=== PATIENT | male | born 1975 | race Caucasian/White ===

== ENCOUNTER 2020-10-14 10:40 | Inpatient (IN) | payer MEDICARE, MEDICAID, SELFPAY ==
[2020-10-14] VITALS (23 sets, daily range): BP systolic 108–135; BP diastolic 62–94; PULSE 66–98; RESP 12–20; TEMP 35.7–36.7; O2SAT 93–100; BMI 30.6; BMI 32.5
--- NOTE | 2020-10-14 11:00 | ADMGEN ---
This patient, Erik Fwoler IV, was admitted to IMU Room 201-01 at 1045 on 10/14/2020. Patient/family oriented to hospital policies and general routines including ID bracelet, bed and alarms, visiting hours, pain management, procedures, bathroom and other care routines, personal items, smoking policy, room service/diet, and visiting hours. Information on how to activate the Rapid Response Team has been discussed. Patient/Family are encouraged to report perceived risks to care and to ask questions if they do not understand what they are told or what they should do.
--- NOTE | 2020-10-14 11:56 | ECG_ITS ---
Measurements Intervals [place] Rate: 80 P: 54 [place]: 153 QRS: 61 QRSD: 106 T: 83 QT: 371 QTc: 430 Interpretive Statements SINUS RHYTHM WITH MARKED SINUS ARRHYTHMIA ANTEROSEPTAL INFARCT, AGE INDETERMINATE BORDERLINE T WAVE ABNORMALITY- HIGH LATERAL LEADS ABNORMAL ECG Electronically Signed On 10-14-2020 13:35:02 CDT by Misael Blake D.O.
[2020-10-14 12:19] LABS: Hematocrit 47.7 % (42.0-52.0); Hemoglobin 16.1 g/dL (14.0-18.0); Mean Corpuscular HGB Conc 33.8 g/dl (32-36); Mean Corpuscular Hemoglobin 31.4 pg (26-34); Mean Platelet Volume 10.5 fl (7.4-10.4); Platelet Count Result 233 k/mm3 (150-375); Red Blood Count 5.13 M/mm3 (4.6-6.20); White Blood Count 7.1 K/mm3 (4.5-10.0)
--- NOTE | 2020-10-14 12:24 | PM.IMHP ---
H&P: HPI History of Present Illness Date/Time: 10/14/20 12:24 Chief Complaint: Chest pain Narrative: This is a pleasant but unfortunate 45-year-old man who is known to have coronary disease and a significant ischemic cardiomyopathy. He was admitted here at [facility] today in transfer from [place] where he was evaluated in the emergency room in the middle of the night with symptoms of intermittent chest pain. He has a history of previous anterior wall AZ and has had a couple of previous interventions done in his LAD I believe up in [facility]. These events occurred in the remote past. He following that had a long history of noncompliance with medication and follow-up. I saw him in consultation at [facility] back in May of 2018 when he was having some symptoms that were clearly not indicative of an AZ. He then became my patient for follow-up shortly after that. He has a [place] ICD device that was placed up in [place] as well. His residual ejection fraction after the above-described infarction is in the neighborhood of 30%. For this he is an appropriate medical regimen. I saw him in the office in July of this year for routine scheduled follow-up at which time he was not describing any cardiovascular symptoms or symptoms of ischemia. He was however describing an extreme amount of personal/psychosocial stress related to a critical illness in his 15-year-old daughter. Patient in the last month or so began to have some left shoulder pain with no other associated features the shoulder pain was related to rotating and abducting the shoulder. He was not concerned that this represented a cardiac issue. In the last couple of days however he has been having intermittent episodes of some precordial chest discomfort associated with some paresthesias in the fingers. These symptoms do raise concern and last night he went to the emergency room at [place] for evaluation. His electrocardiogram shows a sinus mechanism with previous anterior infarction which appears to be as 1 would expect. I was told his troponin level was somewhat elevated the troponin assay over there is high sensitivity assay with a modest rise and so he was transferred here from their hospital for further evaluation and management. When I came in the room to see him he was resting comfortably and actually sleeping soundly upon awakening he offers no other complaints. Review of Systems Constitutional: Constitutional: Reports no additional constitutional complaints Eyes: Eyes: Reports no additional eye complaints ENT: Reports system reviewed and no additional complaints, except as documented Cardiovascular: Cardiovascular: Reports as per HPI and Reports chest pain Respiratory: Respiratory: Reports no additional respiratory complaints Gastrointestinal: Gastrointestinal: Reports no additional gastrointestinal complaints Musculoskeletal: Musculoskeletal: Reports as per HPI Comments: Left shoulder pain as detailed above Integumentary/Breasts: Skin/Breast: Reports system reviewed and no additional complaints, except as docu Neurologic: Reports system reviewed and no additional complaints, except as documented Psychiatric: Psychiatric: Reports anxiety PMFSH Social History Social History Smoking packs per day: 1 Smoking cigarettes per day: 20.0 Years smoked: 30 Smoking pack-years: 30.00 Smoking status: Current every day smoker Tobacco type: cigarettes Alcohol intake: current Drinks per week: 1 Substance use: current Substance use type: marijuana Gender identity (if verbalized by the patient): Male Spiritual care concerns: No Meds Home Medications and Allergies Home Medications Medication Instructions Recorded Confirmed Type aspirin 81 mg PO DAILY 10/14/20 10/14/20 History carvedilol 12.5 mg PO BIDWM 10/14/20 10/14/20 History citalopram 40 mg PO DAILY 10/14/20 10/14/20 History ezetimibe 10 mg PO DAILY 10/14/20 08
[2020-10-14 12:32] LABS: Anion Gap 6 mmol/L (8-16); Blood Urea Nitrogen 10 mg/dL (9-20); Calcium 9.1 mg/dL (8.4-10.2); Carbon Dioxide 24 mmol/L (22-30); Chloride 107 mmol/L (98-107); Estimated CRCL calculation 110 ml/min; Estimated Glomerular Filt Rate > 60; Glucose 109 mg/dL (65-110); Potassium 3.9 mmol/L (3.4-5.0); Sodium 137 mmol/L (137-145)
[2020-10-14 12:40] LABS: INR 0.9; Prothrombin Time 12.2 Seconds (11.1-14.7)
[2020-10-14 13:04] LABS: Troponin I 0.319 ng/mL (0.000-0.034)
--- NOTE | 2020-10-14 13:19 | WPDMODSED ---
Moderate Sedation Note-Pt Data Patient Data Diagnosis: Chest pain, troponin elevation history of coronary disease previous [place] and ischemic cardiomyopathy Present Complaint: intermittent chest pain Procedure to be performed/Plan: left heart catheterization Allergies Allergy/AdvReac Type Severity Reaction Status Date / Time Penicillins Allergy Unknown UNKNOWN Verified 05/21/18 01:14 rosuvastatin Allergy Unknown Unknown Verified 05/21/18 01:14 Home Medications Medication Instructions Recorded Confirmed Type aspirin 81 mg PO DAILY 10/14/20 10/14/20 History carvedilol 12.5 mg PO BIDWM 10/14/20 10/14/20 History citalopram 40 mg PO DAILY 10/14/20 10/14/20 History ezetimibe 10 mg PO DAILY 10/14/20 10/14/20 History famotidine 20 mg PO DAILY 10/14/20 10/14/20 History isosorbide mononitrate 30 mg PO Q12H 10/14/20 10/14/20 History lisinopril 20 mg PO DAILY 10/14/20 10/14/20 History simvastatin 40 mg PO HS 10/14/20 10/14/20 History ticagrelor [Brilinta] 60 mg PO Q12H 10/14/20 10/14/20 History Current Medications: Active Medications Aspirin (Aspirin 81 Mg Enteric Tablet) 81 mg PO DAILY [facility] Carvedilol (Carvedilol 12.5 Mg Tablet) 12.5 mg PO BIDWM [facility] Citalopram Hydrobromide (Citalopram Hydrobromide 10 Mg Tablet) 40 mg PO DAILY [facility] Ezetimibe (Ezetimibe 10 Mg Tablet) 10 mg PO DAILY [facility] Isosorbide Mononitrate (Isosorbide Mononitrate 30 Mg Tab.Er.24h) 30 mg PO Q12HR JOHNNA Lisinopril (Lisinopril 20 Mg Tablet) 20 mg PO DAILY [facility] Simvastatin (Simvastatin 20 Mg Tablet) 40 mg PO HS [facility] Ticagrelor (Ticagrelor 60 Mg Tablet) 60 mg PO Q12HR [facility] Sedation/Anesthesia: No previous sedation/anesthesia problems (including family history). [facility] Social History Social History Smoking packs per day: 1 Smoking cigarettes per day: 20.0 Years smoked: 30 Smoking pack-years: 30.00 Smoking status: Current every day smoker Tobacco type: cigarettes Alcohol intake: current Drinks per week: 1 Substance use: current Substance use type: marijuana Gender identity (if verbalized by the patient): Male Spiritual care concerns: No Mod Sed Physical Exam Physical Exam Pre Procedural Exam: Normal: Neck, Throat, Airway, Lungs, Heart Rate, Heart Rhythm, Neuro Exam and Extremities and Variation: Appearance ( overweight white male no distress sleeping) and Heart Size ( PMI laterally displaced) Hours since solid foods: 12 Hours since liquid intake: 12 Mallampati Classification: class II Internal Medicine - PN: Obj Da Vital Signs Vital Signs: Vital Signs - 24 hr 10/14/20 11:26 10/14/20 12:00 Temperature 36.7 C Pulse Rate 98 77 Respiratory Rate 14 Blood Pressure 122/86 Pulse Oximetry 98 Meds/Results Medications: Active Medications Generic Name Dose Route Start Last Admin Trade Name Freq PRN Reason Stop Dose Admin Aspirin 81 mg 10/15/20 09:00 Aspirin 81 Mg Enteric Tablet PO DAILY JOHNNA Carvedilol 12.5 mg 10/14/20 17:00 Carvedilol 12.5 Mg Tablet PO BIDWM [facility] Citalopram Hydrobromide 40 mg 10/15/20 09:00 Citalopram Hydrobromide 10 Mg Tablet PO DAILY JOHNNA Ezetimibe 10 mg 10/15/20 09:00 Ezetimibe 10 Mg Tablet PO DAILY JOHNNA Isosorbide Mononitrate 30 mg 10/14/20 21:00 Isosorbide Mononitrate 30 Mg Tab.Er.24h PO Q12HR JOHNNA Lisinopril 20 mg 10/15/20 09:00 Lisinopril 20 Mg Tablet PO DAILY JOHNNA Simvastatin 40 mg 10/14/20 21:00 Simvastatin 20 Mg Tablet PO HS JOHNNA Ticagrelor 60 mg 10/14/20 21:00 Ticagrelor 60 Mg Tablet PO Q12HR [facility] Labs CBC & Chem 7: 10/14/20 12:11 10/14/20 12:11 Labs: Laboratory Results - last 24 hr 10/14/20 10/14/20 10/14/20 12:11 12:11 12:11 WBC 7.1 RBC 5.13 Hgb 16.1 Hct 47.7 MCV 93.0 MCH 31.4 MCHC 33.8 RDW 13.0 Plt Count 233 MPV 10.5 H PT 12.2 INR 0.9 Sodium 137 Potassium 3.9 Chloride 107 Carbon Dioxide 24 Anion Gap
--- NOTE | 2020-10-14 14:22 | WPDCARDPROC ---
Cardiac Cath Procedure Note Date of procedure:: 10/14/20 Performing physician:: Berto Roland MD Indication:: Chest pain, history of coronary disease and ischemic cardiomyopathy troponin elevation Brief clinical history:: this is a 45-year-old man with a known history of coronary disease, previous AL and PCI of the LAD at another institution. He has a history of ischemic LV dysfunction and a implantable defibrillator device. He enters this hospital in transfer from an outlying hospital with an episode of chest pain at with a very modest to a troponin rise. In this setting a follow-up angiogram has been recommended. Procedure Procedure performed:: Left ventriculography coronary angiography Sedation/Medication given:: fentanyl 50 mg Versed 2 mg case start 1:52 p.m. end time 2:16 p.m. sedation provided by Clyde Freed RN, trained observer Access site:: right femoral artery Estimated blood loss:: 15-20 cc Procedure note:: this patient was brought to the cardiac catheterization lab in the postabsorptive state where the right femoral triangle was prepared and draped in the normal fashion. Anesthesia was provided with 1% lidocaine infiltrated locally. Using the modified Seldinger technique the 5 Swedish sheath was placed into the femoral artery left heart catheterization was then carried out I used a 5 Swedish angled pigtail catheter to document left-sided hemodynamics and to injected LV g in the BENJAMIN projection. The pigtail catheter was then withdrawn I used a 5 Swedish JR4 catheter to engage and inject the right coronary artery this catheter would not stay in the vessel so I changed for a 5 Swedish WRP catheter. 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 After this I used a 5 [place] FL4 catheter to engage The left coronary artery and injected in multiple projections. Cineangiograms were then reviewed and the case was terminated. The patient tolerated procedure well there were no apparent complications he left the quality assurance lab technician with no sign of groin hematoma. Sheath will be removed with direct manual compression in the holding area. Findings:: Hemodynamics: Central aortic pressure is 116 over 72 left ventricle 118/8 end-diastolic pressure 18. There is no significant gradient on pullback across the aortic valve. Left ventricle: The left ventricle is significantly dilated. There is profound systolic hypokinesia with a global ejection fraction I would visually estimate to be 20%. The anterior wall is frankly akinetic. There is angiographic evidence of left ventricular apical thrombus. The left main coronary artery is nicely patent the left anterior descending is 100% occluded at its origin. There is proximal stent material visible in the LAD but there is no antegrade flow in the vessel. The circumflex is a moderate to large caliber vessel there is mild luminal irregularities throughout the circumflex or does not appear to be any significant flow-limiting disease. There is collateral filling from left to right from the circumflex to the RPDA and RPL branches. The right coronary artery is dominant to the posterior circulation it is medium in caliber and severely diffusely disease. There is stent material in the proximal segment of the artery as well as in the 3rd portion. Proximal to the of the 1st stent there is 70-80% stenosis in the trunk of the right coronary artery. There is then severe diffuse disease after which the distal segment of the artery in the distal more stent is 100% occluded. 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 After injecting the RCA I redirected the WRP catheter to inject this vessel in both the SUDANESE and BENJAMIN projections. This is an anomalous OM branch. There is high-grade 95% stenosis just after the origination of this branch. The remain
[2020-10-14] MEDS: SODIUM CHLORIDE 0.9% IV 1,000 ML 125 ML IV CONT (17:38)
[2020-10-14] MEDS: carvediloL 12.5 MG TABLET PO (17:41)
[2020-10-14] MEDS: TICAGRELOR 60 MG TABLET PO (20:41)
[2020-10-14] MEDS: SIMVASTATIN 20 MG TABLET 40 MG PO (20:41)
[2020-10-14] MEDS: ISOSORBIDE MONONITRATE 30 MG TAB.ER.24H PO (20:41)
[2020-10-15] VITALS (8 sets, daily range): BP systolic 105–106; BP diastolic 71–78; PULSE 66–93; RESP 18–20; TEMP 36.2–36.6; O2SAT 96–100
[2020-10-15] MEDS: carvediloL 12.5 MG TABLET PO (08:30)
[2020-10-15] MEDS: TICAGRELOR 60 MG TABLET PO (08:31)
[2020-10-15] MEDS: ASPIRIN 81 MG ENTERIC TABLET PO (08:31)
[2020-10-15] MEDS: ISOSORBIDE MONONITRATE 30 MG TAB.ER.24H PO (08:31)
[2020-10-15] MEDS: EZETIMIBE 10 MG TABLET PO (08:31)
[2020-10-15] MEDS: CITALOPRAM HYDROBROMIDE 10 MG TABLET 40 MG PO (08:32)
--- NOTE | 2020-10-15 10:31 | PM.PNCARD ---
Progress Note: A&P Additional Plan 45-year-old man with: Profound ischemic cardiomyopathy with complex multivessel coronary disease. 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 The remainder of the circumflex is without significant disease. The right coronary is distally occluded and collateralized from the circumflex. Left ventricular ejection fraction is very low and he does have apical thrombus. He may benefit from PCI to the anomalous circumflex OM vessel that collateralizes his LAD. This would be a a technically challenging and obviously high risk intervention which should not be attempted here at [facility]. Alternatively CABG to his LAD and distal RCA could be considered which also is a very high-risk procedure given his very poor ejection fraction. This might be considered given his young age. I am going to transition him from lisinopril to Entresto. I will follow him up course in my office here and arrange for follow-up with the interventional colleagues at [place] to consider either high-risk PCI or surgical revascularization. Berto Roland MD [facility] Subjective Date/time seen: Date of service: 10/15/20 10:31 Interval history: Follow-up visit in this 45-year-old man with: Coronary artery disease profound ischemic cardiomyopathy, left ventricular apical thrombus and ischemic symptoms prompting follow-up angiography yesterday. Findings are detailed in the cardiac catheterization note. Patient may benefit from either high-risk PCI of the high-grade stenosis in the proximal aspect of his anomalous circumflex vessel was also collateralizes his LAD. Alternative high risk CABG might also be considered. He is stable this morning asymptomatic feels well and would like to be discharged. Because of his very low ejection fraction I plan to shift him from lisinopril to Entresto. Discussed this in detail with the patient this morning. He is ambulatory and appears to be a stable candidate for discharge. The remainder of his medical regimen including aspirin, Brilinta and carvedilol as well as simvastatin and Zetia will also of course be continued. Exam Const: General: comfortable and no acute distress Other: Well-developed well-nourished white male appearing his stated age comfortable and in no distress HENMT: Mouth: Yes moist mucous membranes Eyes: Sclera: sclerae normal Pupils: Equal, round and reactive pupils present Neck: Neck: supple and no JVD Other: Carotid pulses are intact and without bruits. Resp: Effort & Inspection: normal respiratory effort Auscultation: clear to auscultation bilaterally Cardio: Rate: regular rate Rhythm: regular rhythm Other: PMI is enlarged and laterally displaced summation gallop is evident GI: GI Palp: Yes Soft to palpation Auscultation: normal bowel sounds Skin: General skin exam: normal color Neuro: Cognition (Neuro): normal cognition Extrem: General: normal to inspection Objective Data Vital Signs Vital Signs: Vital Signs - 24 hr 10/14/20 11:26 10/14/20 12:00 10/14/20 14:28 Temperature 36.7 C 35.7 C L Pulse Rate 98 77 92 Respiratory Rate 14 18 Blood Pressure 122/86 117/77 Pulse Oximetry 98 98 10/14/20 14:40 10/14/20 14:45 10/14/20 14:50 Temperature Pulse Rate 88 82 81 Respiratory Rate 17 18 19 Blood Pressure 124/91 H 125/78 121/83 Pulse Oximetry 99 100 97 10/14/20 14:55 10/14/20 15:00 10/14/20 15:05 Temperature Pulse Rate 72 70 73 Respiratory Rate 20 13 13 Blood Pressure 121/79 135/75 132/82 Pulse Oximetry 99 100 100 10/14/20 15:10 10/14/20 15:25 10/14/20 15:40 Temperature Pulse Rate 83 74 78 Respiratory Rate 13 12 14 Blood Pressure 111/82 117/86 120/89 Pulse Oximetry 99 98 99 10/14/20 15:55 10/14/20 16:10 10/14/20 16:49 Temperature 36.6 C Pulse Rate 68 76 78 Respiratory Rate 14 16 14 Blood Pressure 113/92 H 1
[2020-10-15] MEDS: SACUBITRIL/VALSARTAN 24-26 MG TABLET 1 TAB PO (10:58)
--- NOTE | 2020-10-15 11:07 | PM.DS ---
DS: Admitting Diagnosis Admitting Diagnosis Angina pectoris Ischemic cardiomyopathy DS: Discharge Diagnosis Discharge Diagnosis (1) Ischemic cardiomyopathy: Code(s): I25.5 - Ischemic cardiomyopathy Status: Acute DS: Summary Hospital Course Reason for hospitalization: Chest pain Troponin elevation Hospital Course: This is a 45-year-old man well known to have coronary fortunately well known to have a severe ischemic cardiomyopathy. He presented to a referring hospital with some ischemic type chest pain was waxing and waning for a couple of days and was transferred to this hospital where further evaluation of this was. Cardiology consultation services were not available at the initial facility. In addition to that I see this patient in the office for ongoing cardiac follow-up. He was comfortable upon consultation in the hospital here. Because of a mildly elevated troponin level follow-up angiogram was recommended. He underwent catheterization yesterday without complications. The details are in the separately dictated catheterization note but in summary he has a profound ischemic cardiac low ejection fraction and evidence of left ventricular apical thrombus. He has total occlusion of his LAD at its origin in an area that was stented a long time ago. He has total occlusion of his distal RCA in an area that was stented a long time ago as well. The patient has no significant wainwright circumflex disease. 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 The occluded right coronary artery receives [id number] collateralization from the distal circumflex. Because of his very low ejection fraction I recommended transitioning him from lisinopril to Entresto and with intent to follow this patient up in my office and I recommended arranging for follow-up with consultation with interventional colleagues at [facility] to consider either high-risk PCI of the origin of the anomalous OM branch as described above or possibly given his young age surgical revascularization of the LAD and occluded RCA vessels as well. 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 Today he is ambulatory he is asymptomatic and appears to be an acceptable candidate for discharge. He is instructed to restrict himself to sedentary activity at home following discharge because of his ischemic disease and low ejection fraction. Status at Discharge Functional status at discharge: independent ambulation Time Spent with Patient Time attestation: Total time spent providing and/or coordinating discharge services: Time spent: Greater than 30 minutes Exam Const: General: comfortable and no acute distress HENMT: Mouth: Yes moist mucous membranes Eyes: Sclera: sclerae normal Pupils: Equal, round and reactive pupils present Neck: Neck: supple and no JVD Carotids: bruit Other: Carotid pulses are diminished in volume but normal in upstroke Resp: Effort & Inspection: normal respiratory effort Auscultation: clear to auscultation bilaterally Cardio: Rate: regular rate Rhythm: regular rhythm Other: PMI is laterally displaced summation gallop is evident no murmur GI: GI Palp: Yes Soft to palpation Auscultation: normal bowel sounds Skin: General skin exam: normal color Neuro: General: gait normal Extrem: General: normal to inspection DS: Data Data Completed and Pending Labs on day of discharge: Labs from last 24 hours 10/14/20 10/14/20 10/14/20 12:11 12:11 12:11 WBC 7.1 RBC 5.13 Hgb 16.1 Hct 47.7 MCV 93.0 MCH 31.4 MCHC 33.8 RDW 13.0 Plt Count 233 MPV 10.5 H PT 12.2 INR 0.9 Sodium 137 Potassium 3.9 Chloride 107 Carbon Dioxide 24 Anion Gap 6 L BUN 10 Creatinine 0.80 Elsie
== END 2020-10-15 11:35 | disposition home or self-care (01) | DRG 287 ==
PROVIDERS: Admitting Provider Specialist; PCP Physician Assistant; Visit Provider Specialist
PROC: 4A023N7 Measurement of Cardiac Sampling and Pressure, Left Heart, Percutaneous Approach (ICD-10-PCS; CPT 93452; principal; 2020-10-14 13:30)
DX: I25.5 Ischemic cardiomyopathy (principal); F17.210 Nicotine dependence, cigarettes, uncomplicated; I25.10 Atherosclerotic heart disease of native coronary artery without angina pectoris; I25.2 Old myocardial infarction; Z79.82 Long term (current) use of aspirin; Z95.810 Presence of automatic (implantable) cardiac defibrillator
CPT/HCPCS: 36415; 80048; 84484; 85027; 85610; 93005; 93458; A9270; C1887; C1894; J0461; J1644; J2250; J3010; J7030; J7040